=== PATIENT | male | born 1995 | race African-American/Black ===

== ENCOUNTER 2017-05-22 08:21 | Emergency (ER) | payer OTHER ==
[~2017-05-22] VITALS: Ht 182.9 cm; Wt 81.7 kg
[~2017-05-22 08:21] MED LIST: ACETAMINOPHEN-1 EAC1 PO; AZITHROMYCIN 2250 MG PO; CIPRO500 MG PO; FIORICET-COD 51 EACH PO; IBUPROFEN 800800 M1 PO; INTUNIV2 MG PO; PHENERGAN 25 MG25 M1 PO; PREDNISONE 20 M20 MG PO; TUSSIONEX PENN473 ML PO; VALIUM5 MG PO; VENTOLIN HFA 1818 GM INH
[2017-05-22] MEDS ORDERED: XANAX1 MG PO ×2 (08:51)
[2017-05-22] MEDS ORDERED: QUETIAPINE FUM100 MG PO (08:51)
[2017-05-22] MEDS ORDERED: CELEXA10 MG PO (08:52)
[2017-06-11] MEDS ORDERED: DONNATAL TABL16.2 MG PO (08:50)
[2017-06-11] MEDS ORDERED: PHENERGAN 25 MG25 M1 PO (10:53)
[2017-06-11] MEDS ORDERED: ANUSOL-HC25 MG RECTAL (10:53)
== END 2017-05-22 09:55 | disposition home or self-care (01) ==
LOC: ER 08:21
DX: T69.8XXA Other specified effects of reduced temperature, initial encounter (principal); J45.909 Unspecified asthma, uncomplicated; F17.210 Nicotine dependence, cigarettes, uncomplicated; F41.9 Anxiety disorder, unspecified; F25.9 Schizoaffective disorder, unspecified; Z88.6 Allergy status to analgesic agent; Z88.8 Allergy status to other drugs, medicaments and biological substances; Z59.0 Homelessness; X31.XXXA Exposure to excessive natural cold, initial encounter

== ENCOUNTER 2017-10-19 14:34 | Emergency (ER) | payer OTHER ==
[~2017-10-19] VITALS: Ht 182.9 cm; Wt 81.7 kg
[~2017-10-19 14:34] MED LIST changes: +ANUSOL-HC25 MG RECTAL; +CELEXA10 MG PO; +DONNATAL TABL16.2 MG PO; +QUETIAPINE FUM100 MG PO; +XANAX1 MG PO
[2017-10-19] MEDS ORDERED: MOBIC15 MG PO (16:06)
[2017-10-19 16:15] VITALS: BP 132/71
[2017-10-20] MEDS ORDERED: IBUPROFEN 600600 M1 PO (02:42)
== END 2017-10-19 16:19 | disposition home or self-care (01) ==
LOC: ER 14:34
DX: S93.691A Other sprain of right foot, initial encounter (principal); F17.210 Nicotine dependence, cigarettes, uncomplicated; J45.909 Unspecified asthma, uncomplicated; F25.9 Schizoaffective disorder, unspecified; F41.9 Anxiety disorder, unspecified; Z88.6 Allergy status to analgesic agent; Z88.8 Allergy status to other drugs, medicaments and biological substances; W01.0XXA Fall on same level from slipping, tripping and stumbling without subsequent striking against object, initial encounter; Y93.01 Activity, walking, marching and hiking; Y92.89 Other specified places as the place of occurrence of the external cause; Y99.8 Other external cause status

== ENCOUNTER 2017-10-20 02:15 | Emergency (ER) | payer OTHER ==
[~2017-10-20] VITALS: Ht 185.4 cm; Wt 82.6 kg
[~2017-10-20 02:15] MED LIST changes: +MOBIC15 MG PO
[2017-10-20] MEDS ORDERED: IBUPROFEN 600600 M1 PO (02:42)
[2017-10-20 03:31] VITALS: BP 115/76
== END 2017-10-20 03:32 | disposition home or self-care (01) ==
LOC: ER 02:15
DX: S93.401A Sprain of unspecified ligament of right ankle, initial encounter (principal); W19.XXXA Unspecified fall, initial encounter; Y93.89 Activity, other specified; Y92.89 Other specified places as the place of occurrence of the external cause; Y99.8 Other external cause status; J45.909 Unspecified asthma, uncomplicated; F17.210 Nicotine dependence, cigarettes, uncomplicated; Z88.8 Allergy status to other drugs, medicaments and biological substances